=== PATIENT | female | born 1985 | race Asian ===

== ENCOUNTER 2017-05-08 12:30 | Emergency (ER) | payer OTHER ==
[~2017-05-08] VITALS: Ht 157.5 cm; Wt 58.7 kg
[2017-05-08 12:32] VITALS: TEMP 36.9; Ht 157.5 cm; Wt 58.7 kg
[2017-05-08] MEDS ORDERED: SODIUM CHLORIDE 0.9% 1000ML 1,000 ML IV STA (12:50)
[2017-05-08] MEDS ORDERED: ONDANSETRON 8 MG/54 ML D5W IV STA (12:50)
[2017-05-08 13:34] LABS: BASO % 0.3 %; BASO ABS # 0.03 K/uL (0-0.2); EOS % 0.3 %; EOS ABS # 0.03 K/uL (0-0.5); HEMOGLOBIN 14.3 g/dL (12.0-16.0); IG# 0.01 K/uL (0.00-0.02); LYMPH % 25.9 %; LYMPH ABS # 2.41 K/uL (1.2-3.4); MEAN CORPUSCULAR HEMOGLOBIN 28.9 pg (25-34); MEAN PLATELET VOLUME 8.7 fL (7.4-10.4); MONO % 7.9 %; MONO ABS # 0.73 K/uL (0.11-0.59); NEUT % 65.5 %; NEUT ABS # 6.08 K/uL (1.4-6.5); PLATELET COUNT 339 K/uL (130-400); RED CELL DISTRIBUTION WIDTH CV 12.6 % (11.5-14.5); RED CELL DISTRIBUTION WIDTH SD 38.8 fL (36.4-46.3); WHITE BLOOD COUNT 9.29 K/uL (4.8-10.8)
[2017-05-08] MEDS ORDERED: ONDANSETRON INJ 2 MG/ML 2 ML VIAL IV PRN (13:45)
[2017-05-08] MEDS ORDERED: ONDANSETRON INJ 2 MG/ML 2 ML VIAL IV ONE (13:45)
[2017-05-08 13:51] LABS: ALBUMIN 4.5 gm/dl (3.4-5.0); CALCIUM 9.1 mg/dl (8.5-10.1); CREATININE 0.62 mg/dl (0.60-1.20); POTASSIUM 3.6 mmol/L (3.5-5.1)
[2017-05-08 13:53] LABS: TOTAL PROTEIN 8.2 gm/dl (6.4-8.2)
[2017-05-08] MEDS ORDERED: CEFTRIAXONE SOD INJ 1 GM ADDVIAL IV STA (15:13)
[2017-05-08 16:07] VITALS: BP 98/59; PULSE 70; O2SAT 98
[2017-05-08] MEDS ORDERED: CEPH500C2 PO (16:09)
[2017-05-08] MEDS ORDERED: ONDA4TAB10 SL (16:09)
--- NOTE | 2017-05-08 16:22 | EMERGENCY ROOM VISIT NOTE ---
ED Visit Note First contact with patient: 12:37 Chief Complaint: Nausea and vomiting. History of Present Illness: Ms. Roman is a 31 year-old [place] female who ambulates into the ED accompanied by male friend complaining of nausea and vomiting. Historically patient reports she arrived in the [place] 3 days ago. She reports she is with her last menstrual cycle on March 14; she has not been seen by an [facility] [facility]IST[facility]. Today she was seen at [facility] and referred to the ED for nausea and vomiting. A computer solar electric installer was used for the patient. Patient reports a ongoing nausea and vomiting for the last 3 days. She reports the nausea has been constant and most of the vomiting occurs after she eats or drinks. She reports up to 10 episodes of vomiting per day. She has not identified any alleviating factors related to her nausea or vomiting. She has not taken any medications for nausea vomiting prior to arrival at the hospital. Associated with her nausea and vomiting she reports she slightly lightheaded and feels fatigue. Patient denies fevers, chills, sweats, skin eruptions, skin color changes, upper respiratory tract symptoms, shortness of breath, chest pain, abdominal pain, hematemesis, diarrhea, constipation, urinary symptoms, hematuria, vaginal bleeding, vaginal discharge, back/flank pain. Review of Systems: As noted above in history of present illness. All body systems were reviewed and found to be negative as noted above. Past Medical History: Uterine myeloma. Current Medications: Patient denies. Allergies to Medications: Tetanus toxoid. Social History: Patient is not employed, she is university student; she denies tobacco and alcohol use. Physical Examination: Vital Signs: Date Time Temp Pulse Resp B/P (MAP) Pulse Ox O2 Delivery O2 Flow Rate FiO2 05/08/17 16:07 70 18 98/59 98 Room Air 05/08/17 15:00 58 18 104/67 100 Room Air 05/08/17 13:29 60 102/66 62 109/76 82 133/79 05/08/17 12:32 36.9 67 16 107/78 97 Room Air GENERAL: 31-year-old female in mild distress due to symptoms, nontoxic-appearing , afebrile and hemodynamically stable. NOTE: Should be noted that the patient speaks Salvadorean and a small amount of Spanish. She does have a male friend who speaks Salvadorean and also speaks a small amount of Spanish. We did seem to communicate well in most of her questions were able to be broken down into smaller components for her to understand. NEUROLOGICAL: Awake, alert and oriented to person, place and time. Answering questions appropriately and following commands. Normal gait. Good hand eye coordination. SKIN: Warm, dry and pink. No soft tissue eruptions or trauma noted. HEENT: Atraumatic and normocephalic. PERRLA. Sclera white and conjunctiva pink. Oral cavity moist and pink. Pharynx is nonerythematous or edematous. Speech normal. No lymphadenopathy. Trachea midline. No jugular venous distention. BACK: No tenderness over the bony spine. No CVA tenderness. THORAX: Lungs sounds are clear to auscultation and equal bilaterally with symmetrical chest wall. No wheezing, rales or rhonchi. No crepitus, tenderness , subcutaneous air or deformities noted. HEART: Regular rate and rhythm. No gallops, rubs or murmurs are appreciated. ABDOMEN: Flat, soft and nontender. Positive bowel sounds in all quadrants. No guarding, rigidity or organomegaly. EXTREMITIES: Moves all extremities well on command and with purpose. All distal neurovascular statuses are intact and equal bilaterally. ED Course: Patient is assessed as noted above. Laboratory Testing: Test 05/08/17 13:16 Range/Units White Blood Count 9.29 4.8-10.8 K/uL Red Blood Count 4.94 4.2-5.4 M/uL Hemoglobin 14.3 12.0-16.0 g/dL Hematocrit 42.0 37-47 % Mean Corpuscular Volume 85.0 80-100 fL Mean Corpuscular Hemoglobin 28.9 25-34 pg Mean Corpuscular Hemoglobin Concent 34.0 32-36 g/dl Platelet Count 339 130-400 K/uL Mean Platelet Volume 8.7 7.4-10.4 fL Neutrophils (%) (Auto) 65.5 % Lymphocytes (%) (Auto) 25.9 % Monocytes (%) (Auto) 7.9 % Eosinophils (%) (Auto) 0.3 % Basophils (%) (Auto) 0.3 % Neutrophils # (Auto) 6.08 1.4-6.5 K/uL Lymphocytes # (Auto) 2.41 1.2-3.4 K/uL Monocytes # (Auto) 0.73 0.11-0.59 K/uL Eosinophils # (Auto) 0.03 0-0.5 K/uL Basophils # (Auto) 0.03 0-0.2 K/uL RDW Standard Deviation 38.8 36.4-46.3 fL RDW Coefficient of Variation 12.6 11.5-14.5 % Immature Granulocyte % (Auto) 0.1 % Immature Granulocyte # (Auto) 0.01 0.00-0.02 K/uL Urine Color YELLOW Urine Appearance CLEAR CLEAR Urine pH 6.0 4.5-7.5 Urine Specific [place] 1.023 1.000-1.030 Urine Protein NEG NEG Urine Glucose (UA) NEG NEG Urine Ketones 3+ NEG Urine Occult Blood TRACE NEG Urine Nitrite NEG NEG Urine Bilirubin NEG NEG Urine Urobilinogen NEG NEG Urine Leukocyte Esterase SMALL NEG Urine WBC (Auto) 5-10 0-5 /hpf Urine RBC (Auto) 0-4 0-4 /hpf Urine Hyaline Casts (Auto) 5-10 0-5 /lpf Urine Epithelial Cells (Auto) >30 0-5 /lpf Urine Bacteria (Auto) 1+ NEG Sodium Level 133 136-145 mmol/L Potassium Level 3.6 3.5-5.1 mmol/L Chloride Level 102 98-107 mmol/L Carbon Dioxide Level 24 21-32 mmol/L Anion Gap 7.0 3-11 mmol/L Blood Urea Nitrogen 9 7-18 mg/dl Creatinine 0.62 0.60-1.20 mg/dl Est Creatinine Clear Calc Drug Dose 104.0 ml/min Estimated GFR () 139.3 Estimated GFR (Non- 120.2 BUN/Creatinine Ratio 14.4 10-20 Random Glucose 87 70-99 mg/dl Calcium Level 9.1 8.5-10.1 mg/dl Total Bilirubin 0.4 0.2-1 mg/dl Direct Bilirubin 0.1 0-0.2 mg/dl Aspartate Amino Transf (AST/SGOT) 14 15-37 U/L Alanine Aminotransferase (ALT/SGPT) 15 12-78 U/L Alkaline Phosphatase 61 45-117 U/L Total Protein 8.2 6.4-8.2 gm/dl Albumin 4.5 3.4-5.0 gm/dl Lipase 135 73-393 U/L Human Chorionic Gonadotropin, Quant 53395 mIU/mL Cultures pending. Patient was hydrated with normal saline and received 4 mg of Zofran IV initially for her nausea/vomiting. Patient was reassessed multiple times during her stay in the emergency department. Patient received 1 g of Rocephin IV for antibiotic coverage. Patient was trialed on juice and crackers and were able to tolerate them. Patient was educated about today's findings and instructed on her treatment plan ; she verbalized understanding and agreement with this plan. Clinical Impression: Nausea and vomiting. Urinary tract infection. Decision-Making: Initially my differential diagnosis I considered , hyperemesis gravidarum, urinary tract infection, hepatitis, pancreatitis and other causes. Disposition: Patient discharged to home in stable condition accompanied by male friend; prior to departure she was reassessed and subjectively reported she was feeling better. Plan: Use 4 mg of Zofran every 6 hours as needed for nausea/vomiting. Use Keflex 500 mg 4 times a day for 7 days. Increase your water intake. Follow-up with [facility] on Saturday for your appointment. Return to the ED for return or worsening nausea/vomiting, vomiting blood, urinary burning, vaginal bleeding, fevers or any new/concerning symptoms.
== END 2017-05-08 16:15 | disposition home or self-care (01) ==
LOC: C.EDB 12:32
DX: R11.2 Nausea with vomiting, unspecified (principal); N39.0 Urinary tract infection, site not specified

== ENCOUNTER → 2017-05-24 | Outpatient (CLI) | payer OTHER ==
[~2017-05-24] MED LIST: ONDA4TAB10 SL
== END | disposition home or self-care (01) ==
LOC: C.LABSPEC 13:59
PROVIDERS: ATTEND Obstetrics & Gynecology
DX: Z34.01 Encounter for supervision of normal first pregnancy, first trimester (principal)

== ENCOUNTER → 2017-05-28 | Outpatient (CLI) | payer OTHER | END | disposition home or self-care (01) | LOC: C.PAPS 10:12 | PROVIDERS: ATTEND Obstetrics & Gynecology | DX: Z12.4 Encounter for screening for malignant neoplasm of cervix (principal) ==

== ENCOUNTER → 2017-05-28 | Outpatient (CLI) | payer OTHER ==
[2017-05-28 16:40] LABS: BASO % 0.5 %; BASO ABS # 0.04 K/uL (0-0.2); EOS % 0.4 %; EOS ABS # 0.03 K/uL (0-0.5); HEMATOCRIT 38.6 % (37-47); HEMOGLOBIN 13.3 g/dL (12.0-16.0); IG# 0.01 K/uL (0.00-0.02); LYMPH ABS # 2.05 K/uL (1.2-3.4); MEAN CELL VOLUME 85.6 fL (80-100); MEAN CORPUSCULAR HEMOGLOBIN 29.5 pg (25-34); MEAN CORPUSCULAR HGB CONC 34.5 g/dl (32-36); MEAN PLATELET VOLUME 9.5 fL (7.4-10.4); MONO % 7.4 %; MONO ABS # 0.58 K/uL (0.11-0.59); NEUT % 65.6 %; NEUT ABS # 5.16 K/uL (1.4-6.5); PLATELET COUNT 316 K/uL (130-400); RED CELL DISTRIBUTION WIDTH CV 12.8 % (11.5-14.5); WHITE BLOOD COUNT 7.87 K/uL (4.8-10.8)
== END | disposition home or self-care (01) ==
LOC: C.LAB1850 15:38
PROVIDERS: ATTEND Obstetrics & Gynecology
DX: Z34.01 Encounter for supervision of normal first pregnancy, first trimester (principal)

== ENCOUNTER → 2017-10-10 | Outpatient (CLI) | payer OTHER ==
[2017-10-10 11:06] LABS: HEMATOCRIT 30.2 % (37-47); HEMOGLOBIN 9.6 g/dL (12.0-16.0)
== END | disposition home or self-care (01) ==
LOC: C.LAB1850 10:14
PROVIDERS: ATTEND Obstetrics & Gynecology
DX: Z34.03 Encounter for supervision of normal first pregnancy, third trimester (principal)